=== PATIENT | female | born 1930 | race Caucasian/White ===

== ENCOUNTER → 2016-06-11 | Outpatient (CLI) | payer MEDICARE, BC | LOC: MW.CHIM 14:03 | PROVIDERS: ATTEND Internal Medicine | DX: G45.9 Transient cerebral ischemic attack, unspecified (principal) | CPT/HCPCS: 36415; 82550; 84520; 99204 ==

== ENCOUNTER → 2016-06-23 | Outpatient (CLI) | payer MEDICARE, BC ==
[~2016-06-23] MED LIST: Gadobutrol 10 mMOL/10 ML SDV IVPUSH STA
--- NOTE | 2016-06-24 14:29 | MR ---
EXAM DATE: 06/23/16 PATIENT'S AGE: 86 Patient: WENDY SOLIS Facility: [place], [place] Site . Site : 1930 Study: MRI Head [id number]/8/2017 3:48:45 PM Ordering Physician: Sissy Tovar Final Report: Indication: TIA. Comparison: 11/26/2014. Technique: Multiplanar T1, T2, FLAIR, susceptibility, diffusion weighted sequences. Findings: Mild generalized volume loss. Patchy and confluent T2/FLAIR signal hyperintensity within the white matter both cerebral hemispheres consistent with small vessel ischemic changes. No intracranial hemorrhage. No abnormal ventricular dilatation. Intracranial vascular flow voids are preserved. No mass or mass effect. No midline shift. No restricted diffusion to suggest acute ischemia. No susceptibility artifact to suggest hemosiderin of remote hemorrhage. Bilateral orbits are unremarkable. Normal appearing sella. Visualized paranasal sinuses and mastoid air cells are unremarkable. Impression: 1. No interval change 2. No acute intracranial abnormality. 3. Mild generalized volume loss. Chronic deep white matter small vessel ischemic changes. Dictated by Narciso Miller MD @ Jun 24 2016 9:03AM (Electronic Signature) Report Signed by Proxy and Original Signed Document filed in the Medical Record. [facility]
--- NOTE | 2016-06-24 14:30 | MR ---
EXAM DATE: 06/23/16 PATIENT'S AGE: 86 Patient: WENDY SOLIS Facility: [place], [place] Site . Site : 1930 Study: MRI Head Angio [id number]/8/2017 4:04:04 PM Ordering Physician: Sissy Tovar Final Report: Indication: TIA. Comparison: None. Technique: [id number] MRA. 3D reconstructed images. Findings: Bilateral carotid siphons are patent. Patent telida Grijalva with diminutive bilateral posterior communicating arteries. Visualized bilateral HOANG and MCA circulations are patent without focal stenosis or aneurysm. Bilateral STEWARD/STEWARDESS WINE circulations are patent without stenosis or aneurysm. Codominant vertebral basilar system. Impression: Normal MRA head. Dictated by Narciso Miller MD @ Jun 24 2016 9:07AM (Electronic Signature) Report Signed by Proxy and Original Signed Document filed in the Medical Record. [facility]
--- NOTE | 2016-06-24 14:31 | MR ---
EXAM DATE: 06/23/16 PATIENT'S AGE: 86 Patient: WENDY SOLIS Facility: [place], [place] Site . Site : 1930 Study: MRI Extremity Angio [id number]/8/2017 4:05:10 PM Ordering Physician: Sissy Tovar Final Report: Indication: TIA. Comparison: None. Technique: [id number] and gadolinium bolus MRA of the neck. 3D reconstructed images. Findings: No focal flow-void on [id number] MRA to suggest high-grade stenosis. Gadolinium bolus MRA demonstrates patent bilateral carotid artery circulations from the origin to the skullbase. No focal stenosis. Patent bilateral vertebral circulations from the origin to the vertebrobasilar junction. No stenosis or dissection. Impression: Normal MRA neck. Dictated by Narciso Miller MD @ Jun 24 2016 9:06AM (Electronic Signature) Report Signed by Proxy and Original Signed Document filed in the Medical Record. [facility]UNILDA
== END ==
LOC: MW.MRI 13:48
PROVIDERS: ATTEND Internal Medicine
DX: G45.9 Transient cerebral ischemic attack, unspecified (principal); I10 Essential (primary) hypertension; I67.82 Cerebral ischemia
CPT/HCPCS: 70546; 70549; 70551; A9585

== ENCOUNTER → 2016-06-28 | Outpatient (CLI) | payer MEDICARE, BC | END | disposition home or self-care (01) | LOC: MW.RT 10:46 | PROVIDERS: ATTEND Emergency Medicine | DX: I10 Essential (primary) hypertension (principal); G45.9 Transient cerebral ischemic attack, unspecified | CPT/HCPCS: 93270 ==

== ENCOUNTER → 2016-08-02 | Outpatient (CLI) | payer MEDICARE, BC | LOC: MW.CHNEURO 08:00 | PROVIDERS: ATTEND Psychiatry & Neurology Neuromuscular Medicine | DX: R27.0 Ataxia, unspecified (principal); R51 Headache; R29.898 Other symptoms and signs involving the musculoskeletal system | CPT/HCPCS: 99214 ==

== ENCOUNTER → 2016-08-13 | Outpatient (CLI) | payer MEDICARE, BC | LOC: MW.CHIM 08:00 | PROVIDERS: ATTEND Internal Medicine | DX: I48.91 Unspecified atrial fibrillation (principal); I10 Essential (primary) hypertension; E78.00 Pure hypercholesterolemia, unspecified; I49.3 Ventricular premature depolarization | CPT/HCPCS: G0463 ==

== ENCOUNTER 2016-12-14 11:32 | Observation (INO) | payer MEDICARE, BC ==
--- NOTE | 2016-12-14 11:41 | EDM.PDOC ---
ED HPI GENERAL MEDICAL PROBLEM - General Chief Complaint: Head Injury Stated Complaint: FALL Time Seen by Provider: 12/14/16 11:36 Source of Information: Reports: Patient History Limitations: Reports: No Limitations - History of Present Illness INITIAL COMMENTS - FREE TEXT/NARRATIVE: HISTORY AND PHYSICAL: History of present illness: 86-year-old female presents to the emergency room today with complaints of falls. Patient was brought in by EMS after having fallen 3 times this morning. EMS reported that she did complain of dizziness when ambulating to the cot, patient currently denies any symptoms. When the patient is asked why she felt that she fell she states she was unsure why and unsure if she lost consciousness. Reports that she had an episode of chest pain at 10:30 this morning and took 1 tablet of nitroglycerin which alleviated her pain. Proceeded to fall at 1045 this morning. EMS did apply a clean dressing to her left hand she had a hematoma. Some bruising noted to the right hand, assisted patient in removing some of her jewelry due to swelling. Patient has a history of atrial fibrillation which she takes aspirin and Xeralto. Review of systems: As per history of present illness and below otherwise all systems reviewed and negative. Past medical history: As per history of present illness and as reviewed below otherwise noncontributory. Surgical history: As per history of present illness and as reviewed below otherwise noncontributory. Social history: No reported history of drug or alcohol abuse. Family history: As per history of present illness and as reviewed below otherwise noncontributory. Physical exam: Gen.: Nontoxic appearing 86-year-old female. Alert and oriented. Able to answers questions appropriately without shortness of breath. HEENT: Atraumatic, normocephalic, pupils reactive, negative for conjunctival pallor or scleral icterus, mucous membranes moist, throat clear, neck supple, nontender, trachea midline. Lungs: Clear to auscultation, breath sounds equal bilaterally, chest nontender. Heart: S1S2, irregular, negative for clicks, rubs, or JVD. Abdomen: Soft, nondistended, nontender. Negative for masses or hepatosplenomegaly. Negative for costovertebral tenderness. Pelvis: Stable nontender. Genitourinary: Deferred. Rectal: Deferred. Extremities: Atraumatic, negative for cords or calf pain. Neurovascular unremarkable. Hematoma noted to left hand along the ulnar side. Bruising noted to proximal 2nd and 3rd knuckle. Moves all extremities per self. Neuro: Awake, alert, oriented. Cranial nerves II through XII unremarkable. Cerebellum unremarkable. Motor and sensory unremarkable throughout. Exam nonfocal. 1310- Discussed case with Dr. Fountain. Patient is agreeable for admission. Patient will be on telemetry Diagnostics: CBC, CMP, troponin, PT/INR, EKG, one view chest x-ray, right hand x-ray Therapeutics: compliance monitor, orthostatic vital Impression: #1 syncope with fall Definitive disposition and diagnosis as appropriate pending reevaluation and review of above. Left Neck Pain Score (Numeric/FACES): 5 - Related Data Allergies Allergy/AdvReac Type Severity Reaction Status Date / Time alprazolam [From Xanax] Allergy Hives Verified 12/14/16 11:53 atorvastatin calcium Allergy Itching Verified 12/14/16 11:53 [From Lipitor] butalbital Allergy Hives Verified 12/14/16 11:53 [From Fiorinal-Codeine #3] caffeine Allergy Hives Verified 12/14/16 11:53 [From Fiorinal-Codeine #3] carbamazepine [From Tegretol] Allergy Hives Verified 12/14/16 11:53 codeine phosphate Allergy Hives Verified 12/14/16 11:53 [From Fiorinal-Codeine #3] diclofenac sodium Allergy Itching Verified 12/14/16 11:53 [From Voltaren] fenofibrate nanocrystallized Allergy Hives Verified 12/14/16 11:53 [From Tricor] fenofibrate,micronized Allergy Hives Verified 12/14/16 11:53 [From Tricor] ramipril [From Altace] Allergy Hives Verified 12/14/16 11:53 Home Meds: Home Meds Citalopram [Citalopram HBr] 20 mg PO DAILY 08/09/13 [History] Gabapentin [Neurontin] 100 mg PO BID 08/09/13 [History] Lutein/Minerals/Vit A,C & E [Ocuvite] 1 tab PO DAILY 08/09/13 [History] Simvastatin [Zocor] 20 mg PO BEDTIME 08/09/13 [History] Vitamin E (Dl,Tocopheryl Acet) [Vitamin E] 400 units PO DAILY 08/09/13 [History] Metoprolol Succinate 25 mg PO BEDTIME 08/10/13 [History] Diclofenac Epolamine [Flector 1.3%] 1 patch TRDERM ASDIRECTED 04/01/14 [History] Cholecalciferol (Vitamin D3) [Vitamin D3] 1,000 unit PO DAILY 04/04/14 [History] Anastrozole [Arimidex] 1 tab PO DAILY 08/18/15 [History] Aspirin [Adult Low Dose Aspirin EC] 1 tab PO DAILY 08/18/15 [History] Fluticasone Propionate [Flonase Allergy Relief] 1 - 2 spray NASBOTH DAILY [History] LORazepam 1 tab PO BID 08/18/15 [History] Omeprazole [Prilosec] 1 cap PO DAILY 08/18/15 [History] Nitroglycerin [Nitrostat] 1 tab BUCCAL DAILY PRN 12/14/16 [History] Rivaroxaban [Xarelto] 1 tab PO DAILY 12/14/16 [History] Past Medical History HEENT History: Reports: Allergic Rhinitis, Impaired Vision, Other (See Below) Other HEENT History: wears glasses, has upper and lower dentures Cardiovascular History: Reports: Heart Murmur, High Cholesterol, Hypertension Respiratory History: Reports: None Gastrointestinal History: Reports: GERD, Hiatal Hernia Genitourinary History: Reports: None [employer] History: Reports: Musculoskeletal History: Reports: Arthritis, Back Pain, Chronic Other Musculoskeletal History: has spinal stenosis, arthritis in back and neck Neurological History: Reports: Headaches, Chronic Psychiatric History: Reports: Anxiety, Depression Endocrine/Metabolic History: Reports: None Hematologic History: Reports: Blood Transfusion(s) Immunologic History: Reports: None Oncologic (Cancer) History: Reports: Breast Dermatologic History: Reports: None - Past Surgical History HEENT Surgical History: Reports: Cataract Surgery Cardiovascular Surgical History: Reports: Coronary Artery Stent Female Surgical History: Reports: Breast Biopsy, Hysterectomy, Mastectomy Musculoskeletal Surgical History: Reports: Shoulder Surgery, Other (See Below) Social & Family History - Tobacco Use Smoking Status *Q: Never Smoker - Alcohol Use Days Per Week of Alcohol Use: 0 Number of Drinks Per Day: 0 Total Drinks Per Week: 0 - Recreational Drug Use Recreational Drug Use: No Drug Use in Last 12 Months: No ED ROS GENERAL - Review of Systems Review Of Systems: See Below ED EXAM, HEAD INJURY - Physical Exam Exam: See Below (See dictation) EKG INTERPRETATION EKG Date: 12/14/16 Time: 11:43 Rhythm: A-Fib Rate (Beats/Min): 94 Course - Vital Signs Last Recorded V/S: Last Vital Signs Temp 36.1 C 12/14/16 11:34 Pulse 98 12/14/16 11:34 Resp 18 12/14/16 11:34 BP 134/75 12/14/16 11:34 Pulse Ox Orthostatic Blood Pressure [ 159/66 Standing] Orthostatic Blood Pressure [ 196/81 Sitting] Orthostatic Blood Pressure [ 193/81 Supine] - Orders/Labs/Meds Orders: Active Orders 24 hr Category Date Time Status Patient Status [ADT] Stat ADT 12/14/16 13:12 Ordered Cardiac Monitoring [RC] . DIRECTED Care 12/14/16 11:34 Active EKG Documentation Completion [RC] STAT Care 12/14/16 11:34 Active Orthostatic Vital Signs [RC] ASDIRECTED Care 12/14/16 11:34 Active Labs: Laboratory Tests 12/14/16 12/14/16 12/14/16 Range/Units 11:51 11:51 11:51 WBC 6.96 (4.0-11.0) K/uL RBC 4.04 L (4.30-5.90) M/uL Hgb 11.9 L (12.0-16.0) g/dL Hct 37.3 (36.0-46.0) % MCV 92.3 (80.0-98.0) fL MCH 29.5 (27.0-32.0) pg MCHC 31.9 (31.0-37.0) g/dL RDW Std Deviation 46.9 (28.0-62.0) fl RDW Coeff of Samia 14 (11.0-15.0) % Plt Count 184 (150-400) K/uL MPV 9.70 (7.40-12.00) fL Neut % (Auto) 64.6 (48.0-80.0) % Lymph % (Auto) 23.6 (16.0-40.0) % [place] % (Auto) 7.9 (0.0-15.0) % Eos % (Auto) 3.6 (0.0-7.0) % Baso % (Auto) 0.3 (0.0-1.5) % Neut # (Auto) 4.5 (1.4-5.7) K/uL Lymph # (Auto) 1.6 (0.6-2.4) K/uL [place] # (Auto) 0.6 (0.0-0.8) K/uL Eos # (Auto) 0.3 (0.0-0.7) K/uL Baso # (Auto) 0.0 (0.0-0.1) K/uL Nucleated RBC % 0.0 /100WBC Nucleated RBCs # 0 K/uL INR 1.04 (0.86-1.11) Sodium 140 (136-146) mmol/L Potassium 4.0 (3.5-5.1) mmol/L Chloride 106 (98-110) mmol/L Carbon Dioxide 26 (21-31) mmol/L BUN 16 (6.0-23.0) mg/dL Creatinine 1.0 (0.6-1.5) mg/dL Est Cr Clr Drug Dosing 31.94 mL/min Estimated GFR (MDRD) 52.6 ml/min Glucose 111 H (60-110) mg/dL Calcium 9.3 (8.8-10.8) mg/dL Total Bilirubin 0.4 (0.1-1.5) mg/dL AST 17 (5-40) IU/L ALT 10 (8-54) IU/L Alkaline Phosphatase 74 (40-150) Troponin I (0.0-0.29) NG/ML Total Protein 7.2 (6.0-8.0) g/dL Albumin 3.8 (3.4-4.8) g/dL Globulin 3.4 (2.0-3.5) g/dL Albumin/Globulin Ratio 1.1 L (1.3-2.8) 12/14/16 Range/Units 11:51 WBC (4.0-11.0) K/uL RBC (4.30-5.90) M/uL Hgb (12.0-16.0) g/dL Hct (36.0-46.0) % MCV (80.0-98.0) fL MCH (27.0-32.0) pg MCHC (31.0-37.0) g/dL RDW Std Deviation (28.0-62.0) fl RDW Coeff of Samia (11.0-15.0) % Plt Count (150-400) K/uL MPV (7.40-12.00) fL Neut % (Auto) (48.0-80.0) % Lymph % (Auto) (16.0-40.0) % [place] % (Auto) (0.0-15.0) % Eos % (Auto) (0.0-7.0) % Baso % (Auto) (0.0-1.5) % Neut # (Auto) (1.4-5.7) K/uL Lymph # (Auto) (0.6-2.4) K/uL [place] # (Auto) (0.0-0.8) K/uL Eos # (Auto) (0.0-0.7) K/uL Baso # (Auto) (0.0-0.1) K/uL Nucleated RBC % /100WBC Nucleated RBCs # K/uL INR (0.86-1.11) Sodium (136-146) mmol/L Potassium (3.5-5.1) mmol/L Chloride (98-110) mmol/L Carbon Dioxide (21-31) mmol/L BUN (6.0-23.0) mg/dL Creatinine (0.6-1.5) mg/dL Est Cr Clr Drug Dosing mL/min Estimated GFR (MDRD) ml/min Glucose (60-110) mg/dL Calcium (8.8-10.8) mg/dL Total Bilirubin (0.1-1.5) mg/dL AST (5-40) IU/L ALT (8-54) IU/L Alkaline Phosphatase (40-150) Troponin I < 0.10 (0.0-0.29) NG/ML Total Protein (6.0-8.0) g/dL Albumin (3.4-4.8) g/dL Globulin (2.0-3.5) g/dL Albumin/Globulin Ratio (1.3-2.8) Departure - Departure Time of Disposition: 13:16 Disposition: Refer to Observation Condition: Good Clinical Impression: Syncope Qualifiers: Encounter type: initial encounter - Discharge Information Referrals: Bubba Yost MD [Primary Care Provider] - Forms: ED Department Discharge - My Orders Last 24 Hours: My Active Orders 12/14/16 11:34 Cardiac Monitoring [RC] . DIRECTED EKG Documentation Completion [RC] STAT Orthostatic Vital Signs [RC] ASDIRECTED 12/14/16 13:12 Patient Status [ADT] Stat - Assessment/Plan Last 24 Hours: My Active Orders 12/14/16 11:34 Cardiac Monitoring [RC] . DIRECTED EKG Documentation Completion [RC] STAT Orthostatic Vital Signs [RC] ASDIRECTED 12/14/16 13:12 Patient Status [ADT] Stat
--- NOTE | 2016-12-14 12:32 | CR ---
EXAMINATION: Left hand HISTORY: Fall COMPARISON: None TECHNIQUE: 2 views FINDINGS: Moderate osteoarthritic changes noted within the left hand with joint space narrowing and o steophyte formation within the interphalangeal joints, most prominent involving the second and third PIP joints. Bone mineralization is mildly osteopenic. No definite fracture or acute osseous abnormali ty demonstrated. No focal soft tissue swelling. Chondrocalcinosis noted within the wrist. IMPRESSION: 1. No acute osseous abnormality demonstrated within the left hand. 2. Prominent osteoarthritic changes noted. 3. Osteopenia.
--- NOTE | 2016-12-14 12:33 | CR ---
EXAMINATION: Right hand HISTORY: Pain COMPARISON: None TECHNIQUE: 2 views FINDINGS: Mild to Moderate osteoarthritic changes noted within the right hand with joint space narrow ing and osteophyte formation noted within the interphalangeal joints. Bone mineralization and joint s paces are otherwise preserved. No focal soft tissue swelling. Radiocarpal alignment is preserved. The re is generalized osteopenia. IMPRESSION: 1. Mild to moderate osteoarthritic changes noted within the right hand. 2. Generalized osteopenia.
--- NOTE | 2016-12-14 12:40 | CR ---
EXAMINATION: Portable chest radiograph. HISTORY: Chest pain. Comparison: 05/29/2015. FINDINGS: The trachea is midline. The cardiomediastinal silhouette is within normal limits. No pulmonary infilt rates, effusions or pneumothorax. Mild chronic interstitial prominence with increased density within the right suprahilar region. Osseous structures appear unremarkable. IMPRESSION: 1. No acute cardiopulmonary process. 2. Interstitial prominence with small area of focal increased density within the right suprahilar reg ion.
--- NOTE | 2016-12-14 12:57 | CT ---
EXAMINATION: Non contrast CT head. Coronal and sagittal reformats. HISTORY: Chest pain FINDINGS: No evidence of intra or extra axial hemorrhage, mass, midline shift, hydrocephalus or edema. There i s mild generalized atrophy. Mild to moderate periventricular and subcortical white matter hypodensiti es noted. No hypoattenuation changes in the major vascular territories to suggest acute infarct. No abnormal intracranial calcifications are detected. No evidence of substantial vascular calcificat ions. Opacification of several ethmoid air cells. Remaining paranasal sinuses and mastoid air cells are ventura ar. Pituitary fossa appears unremarkable. Small area of tenderness thickening within the right supraorbit al region. Orbits and globes appear normal. Calvarium is intact. No evidence of skull fracture. IMPRESSION: 1. Mild generalized atrophy and moderate small vessel ischemic changes without acute intracranial fin dings.
[2016-12-14] MEDS ORDERED: Acetaminophen 325 MG Tab PO ONE (13:34)
--- NOTE | 2016-12-14 13:49 | PCM.HP ---
H&P History of Present Illness - General Admit Problem/Dx: Admission Diagnosis/Problem Admission Diagnosis/Problem Syncope - History of Present Illness Initial Comments - Free Text/Narative: 86 yo female with pmh of atrial fibrillation who presents following a fall. Patient reports fall three times. between each fall she would get up take a few steps then fall again. She denies loosing consciousness. She denies any lightheadedness, or palpitaion. She reports some epigastric pain for which she took a nitro. She denies any chest pain currently. When she feel she hit her head and bruised her left hand. CT head, x-ray of hands were unremarkable. Left Neck Pain Score (Numeric/FACES): 5 Headache Pain Score (Numeric/FACES): 6 - Related Data Allergies/Adverse Reactions: Allergies Allergy/AdvReac Type Severity Reaction Status Date / Time alprazolam [From Xanax] Allergy Hives Verified 12/14/16 11:53 atorvastatin calcium Allergy Itching Verified 12/14/16 11:53 [From Lipitor] butalbital Allergy Hives Verified 12/14/16 11:53 [From Fiorinal-Codeine #3] caffeine Allergy Hives Verified 12/14/16 11:53 [From Fiorinal-Codeine #3] carbamazepine [From Tegretol] Allergy Hives Verified 12/14/16 11:53 codeine phosphate Allergy Hives Verified 12/14/16 11:53 [From Fiorinal-Codeine #3] diclofenac sodium Allergy Itching Verified 12/14/16 11:53 [From Voltaren] fenofibrate nanocrystallized Allergy Hives Verified 12/14/16 11:53 [From Tricor] fenofibrate,micronized Allergy Hives Verified 12/14/16 11:53 [From Tricor] ramipril [From Altace] Allergy Hives Verified 12/14/16 11:53 Home Medications: Home Meds Citalopram [Citalopram HBr] 20 mg PO DAILY 08/09/13 [History] Simvastatin [Zocor] 20 mg PO BEDTIME 08/09/13 [History] Vitamin E (Dl,Tocopheryl Acet) [Vitamin E] 400 units PO DAILY 08/09/13 [History] LORazepam 1 mg PO BEDTIME 08/18/15 [History] Anastrozole [Arimidex] 1 mg PO DAILY 12/14/16 [History] Cholecalciferol (Vitamin D3) [Vitamin D3] 1,000 unit PO DAILY 12/14/16 [History] Cyanocobalamin (Vitamin B-12) [Vitamin B-12] 1,000 mcg PO DAILY 12/14/16 [ History] Nitroglycerin [Nitrostat] 1 tab BUCCAL DAILY PRN 12/14/16 [History] cycloSPORINE [Restasis] 1 drop EYEBOTH BID 12/14/16 [History] prednisoLONE Acetate [Prednisolone Acetate] 1 drop EYEBOTH DAILY 12/14/16 [ History] Aspirin [Low Dose Aspirin EC] 81 mg PO DAILY #30 tablet.dr 12/15/16 [Rx] Metoprolol Tartrate [Lopressor] 25 mg PO Q12HR #0 tablet 12/15/16 [Rx] Past Medical History HEENT History: Reports: Allergic Rhinitis, Impaired Vision, Other (See Below) Other HEENT History: wears glasses, has upper and lower dentures Cardiovascular History: Reports: Heart Murmur, High Cholesterol, Hypertension Respiratory History: Reports: None Gastrointestinal History: Reports: GERD, Hiatal Hernia Genitourinary History: Reports: None [employer] 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: Musculoskeletal History: Reports: Arthritis, Back Pain, Chronic Other Musculoskeletal History: has spinal stenosis, arthritis in back and neck Neurological History: Reports: Headaches, Chronic Psychiatric History: Reports: Anxiety, Depression Endocrine/Metabolic History: Reports: None Hematologic History: Reports: Blood Transfusion(s) Immunologic History: Reports: None Oncologic (Cancer) History: Reports: Breast Dermatologic History: Reports: None - Past Surgical History HEENT Surgical History: Reports: Cataract Surgery Cardiovascular Surgical History: Reports: Coronary Artery Stent Female Surgical History: Reports: Breast Biopsy, Hysterectomy, Mastectomy Musculoskeletal Surgical History: Reports: Shoulder Surgery, Other (See Below) Social & Family History - Family History Family Medical History: Noncontributory - Tobacco Use Smoking Status *Q: Never Smoker Second Hand Smoke Exposure: No - Caffeine Use Caffeine Use: Reports: Coffee - Alcohol Use Days Per Week of Alcohol Use: 0 Number of Drinks Per Day: 0 Total Drinks Per Week: 0 - Recreational Drug Use Recreational Drug Use: No Drug Use in Last 12 Months: No H&P Review of Systems - Review of Systems: Review Of Systems: ROS reveals no pertinent complaints other than HPI. Exam - Exam Exam: See Below - Vital Signs Vital Signs: Last Vital Signs Temp 36.1 C 12/14/16 11:34 Pulse 98 12/14/16 11:34 Resp 18 12/14/16 11:34 BP 134/75 12/14/16 11:34 Pulse Ox Weight: 50.802 kg - Exam General: Alert, Oriented HEENT: Mucosa Moist & [place], Other (bruising and mild swelling over right forehead) Lungs: Clear to Auscultation, Normal Respiratory Effort Cardiovascular: Regular Rate GI/Abdominal Exam: Normal Bowel Sounds, Soft, Non-Tender, No Organomegaly, No Distention Extremities: Normal Inspection, Non-Tender, No Pedal Edema Skin: Warm, Dry, Intact Neurological: No: Focal Deficit - Patient Data Result Diagrams: 12/14/16 11:51 12/14/16 11:51 *Q Meaningful Use (ADM) - VTE *Q VTE Criteria *Q: - Stroke *Q Stroke Criteria *Q: - AMI *Q AMI Criteria *Q: Problem List Initiated/Reviewed/Updated: Yes Assessment/Plan Comment:: 86 yo female who presents following a fall. She was monitored overnight on telemetry. She was noted to have an episode of atrial fibrillation with heart rate in the 120s-140s. She was started on metoprolol 25mg and converted to normal sinus rhythm. Physical therapy was consulted and noted some gait instability and recommended a wheeled walker that would give her more stability than a cane. Dr. Stoner was consulted and recommended metoprolol 25 mg BID, 48 hour holter monitor and discontinuing her xarelto and starting aspirin 81mg daily due to the concerns of her frequent falls. She is to follow up with Dr. Stoner following the completion of holter monitor.
[2016-12-14] MEDS ORDERED: Diltiazem 25 MG/5 ML SDV IVPUSH ONE (15:12)
[2016-12-14] MEDS: Acetaminophen 325 MG Tab PO PRN ×2 (17:01→23:30)
[2016-12-14] MEDS: Metoprolol Tartrate 25 MG Tab PO SCH ×2 (18:56→21:00)
[2016-12-14] MEDS ORDERED: Simvastatin 20 MG Tab PO SCH (21:00)
[2016-12-14] MEDS ORDERED: Cyclosporine 1 DROP EYEBOTH SCH (21:00)
[2016-12-15] MEDS: Acetaminophen 325 MG Tab PO PRN ×2 (03:59→08:07)
[2016-12-15] MEDS: Metoprolol Tartrate 25 MG Tab PO SCH (08:07)
[2016-12-15] MEDS ORDERED: prednisoLONE Acetate 1% Ophth Susp 5 ML Bottle EYEBOTH SCH (09:00)
[2016-12-15] MEDS ORDERED: Citalopram 20 MG Tab PO SCH (09:00)
[2016-12-15] MEDS ORDERED: Anastrozole 1 MG Tab PO SCH (09:00)
[2016-12-15 16:29] VITALS: BP 139/63
[2016-12-15] MEDS ORDERED: Rivaroxaban 15 MG Tab PO SCH (17:30)
--- NOTE | 2016-12-16 11:15 | CONS ---
DATE OF CONSULTATION: 12/15/2016 DATE OF : 1930 PRIMARY CARE PHYSICIAN: None PCP REASON FOR CONSULTATION: Atrial fibrillation with RVR and multiple falls. HISTORY OF PRESENT ILLNESS: This is an 86-year-old female with history of CAD, status post PCI 10 years ago; history of breast cancer; hypertension; hyperlipidemia; history of PVCs and PACs. Recently had a heart cath. There is no significant blockage. She was sent to the hospital because of multiple falls 3 times in a row in the same day. When I talked to her, she was not exactly sure what happened, but she said she has fallen 3 times on the day of admission. The first time, when she was walking out from the house to go to the car, and all of the sudden, she fell. She did not trip. She did not hit her head. She did not lose consciousness. She did not remember if she has palpitation or chest pain prior to the fall, but she was pretty adamant about not losing consciousness. However, she only said "I just fell" and she was very sure that she did not have light-headedness or dizziness. She stated that, if she had those symptoms, she would not have gone out to go to the car and drive. Then, she got up by herself and then she walked into the garage and then she fell again twice. No prodrome symptoms. Not feeling weakness, tightness, or chest pain. She was so sure that she was not tripping or stumbling on anything, and then she was seen in the emergency room. When she was in the hospital, she was found to be in atrial fibrillation with RVR, which has been known before, and heart rate was 130 to 140. Recently, prior to the fall, she was seen by her primary care doctor with regard of her dizziness spell and also there was concern about the slow heart rate with multiple PVCs, and that was why metoprolol was discontinued. By asking her history, even though we stopped her metoprolol, she stated that she did not feel anything different, and she is still feeling about the same. Also, she was not sure either if she has lost consciousness when she was falling. Prior to that a month ago, she also fell. She did not remember the occurrence of the fall or how she got to the fall. She denies shortness of breath. She has occasional chest pain, but no prodrome of symptom of chest pain or palpitations prior to the falls. REVIEW OF SYSTEMS: Has been negative, except indicated in the HPI. PAST MEDICAL HISTORY: Hypertension; CAD status post ICA of the PCI; dyslipidemia; paroxysmal atrial fibrillation; and history of frequent PVCs. SOCIAL HISTORY: She denies smoking, drinking, or drug use. She lives alone. She takes care of herself. MEDICATIONS: Her cardiac medications include aspirin 81 mg once a day, simvastatin 20 mg once a day, and Xarelto 15 mg once a day. Metoprolol was stopped already. CARDIAC TESTING: In May 2016, echocardiogram showed 55% to 60% mild aortic sclerosis, mild MR, mild LAE. Ultrasound of the carotids in May 2015, the right ICA 50% to 69% and the left ICA less than 50%. Holter monitor 48-hour in May 2016, which shows sinus rhythm, heart rate 61 to 103, average heart rate is 70, PVCs 12.3%. No episode of atrial fibrillation. There are episodes of nonsustained VT with PACs. MRI without contrast in September 2015, unremarkable. A 30-day heart monitor showed one episode of atrial fibrillation, PAC and PVC noted. Cardiac catheterization in October 2016, showing LAD 30% blockage, however, no significant disease. PHYSICAL EXAMINATION: VITAL SIGNS: Initial blood pressure was 134/75, but her blood pressure was fluctuated up to 173/83 and coming down to 139/63. Her heart rate, initially she was found to be in atrial fibrillation with a heart rate of 130 to 140, currently in sinus rhythm with a heart rate of 71. Her O2 saturation was 94% on room air. Temperature 37.1. Respirations 18. HEENT: No pale. No jaundice. No JVD. HEART: Normal S1 and S2. No murmur. LUNGS: Clear bilaterally. ABDOMEN: Soft. Nontender. Bowel sounds present. No hepatosplenomegaly. LEGS: No edema. INVESTIGATIONS: EKG on telemetry on December 14, 2016, at 2pm, showed atrial fibrillation with a heart rate of 130 to 140. EKG 12-lead on December 14 at 11 a.m. shows sinus rhythm, heart rate of 94, QRS duration of 87, and QTc of 456. CBC showed WBC 6, hematocrit 37, hemoglobin 11, and platelet 184. INR 1.04. Sodium 140, potassium 4, chloride 106, bicarb 26, BUN 16, creatinine 1.0, glucose 111. Troponin is negative x3. Liver function is normal. ASSESSMENT AND PLAN: This is an 86-year-old female, who has a history of paroxysmal atrial fibrillation, hypertension, hyperlipidemia, and coronary artery disease, status post percutaneous coronary intervention, who came into the hospital with multiple falls, questioning syncope. The patient was a poor historian. She did not remember exactly what happened. She only said falls, but when she got into the hospital, she was found to be in atrial fibrillation with a heart rate of 130 to 140 and converted by itself and then beta-michael was put back on, 25 mg once a day. Regarding her CHADs-VASc, she would need a long-term anticoagulation for atrial fibrillation; however, with the multiple falls, I would hold off on the Xarelto, and I put her back on an aspirin 81 mg once a day. I am not entirely sure that her fall related to arrhythmia or syncope, but definitely is not acute coronary syndrome. I would recommend to do a heart monitor for 48 hours to see any significant atrioventricular block and also to detect the PVC burden, as well as I will refer her to see Electrophysiology for implantable loop recorder for long-term heart rhythm monitoring. Her ischemia work ups seemed to be unremarkable with unremarkable coronary angiogram. I would recommend to do long-period cardiac monitoring: implantable loop recorder. This would help us determine her chronic dizziness as well as frequent fall to determine whether of not it is related to cardiac arrhythmia. She should be able to be discharged home. I will order 48 holter monitor anmd refer her top have implantable loop recorder which will be done in [facility]. JORGE / SUN /[id number] ZUNILDA
--- NOTE | 2016-12-21 19:24 | ECHO ---
The echocardiogram report can be seen in this patient's EMR (electronic medical records) in the Reports section. The report has also been scanned into PACS and can be seen there. ZUNILDA
== END 2016-12-15 17:55 | disposition home or self-care (01) ==
LOC: MW.ED 11:32 → MW.MS 13:12 → UNDOADMOB 13:12 → MW.MS 13:44
PROVIDERS: ADMIT Internal Medicine; ATTEND Internal Medicine
DX: I48.0 Paroxysmal atrial fibrillation (principal); R26.9 Unspecified abnormalities of gait and mobility; R10.13 Epigastric pain; E78.00 Pure hypercholesterolemia, unspecified; I10 Essential (primary) hypertension; I25.10 Atherosclerotic heart disease of native coronary artery without angina pectoris; M19.90 Unspecified osteoarthritis, unspecified site; F41.9 Anxiety disorder, unspecified; F32.9 Major depressive disorder, single episode, unspecified; Z85.3 Personal history of malignant neoplasm of breast; Z88.5 Allergy status to narcotic agent; Z88.6 Allergy status to analgesic agent; Z88.8 Allergy status to other drugs, medicaments and biological substances; Z79.811 Long term (current) use of aromatase inhibitors; Z79.82 Long term (current) use of aspirin; Z79.899 Other long term (current) drug therapy; Z95.5 Presence of coronary angioplasty implant and graft; Z90.10 Acquired absence of unspecified breast and nipple; Z90.710 Acquired absence of both cervix and uterus; Z98.890 Other specified postprocedural states
CPT/HCPCS: 36415; 70450; 71010; 73120; 80053; 84484; 85025; 85610; 93005; 93306; 96374; 97161; 99285; A9270; G0378; J3490; 99283

== ENCOUNTER 2017-02-01 12:59 | Emergency (ER) | payer MEDICARE, BC | END 2017-02-01 13:06 | disposition left against medical advice (07) | LOC: MW.ED 12:59 | DX: Z53.21 Procedure and treatment not carried out due to patient leaving prior to being seen by health care provider (principal) ==

== ENCOUNTER 2017-02-01 15:12 | Emergency (ER) | payer MEDICARE, BC ==
[2017-02-01] MEDS ORDERED: Lidocaine 1% with EPINEPHrine 1:100,000 20 ML MDV ONE (15:21)
[2017-02-01] MEDS ORDERED: Lidocaine 1% with EPINEPHrine 1:100,000 20 ML MDV INJECT ONE (16:10)
[2017-02-01 16:19] VITALS: BP 150/92
--- NOTE | 2017-02-01 21:09 | CONS ---
DATE OF CONSULTATION: 02/01/2017 DATE OF : 1930 PRIMARY CARE PHYSICIAN: None PCP Consult from emergency room, Dr. Reddy. CONCERNING QUESTION: Foreign body in the chest. Consult was called, the patient was seen shortly after. 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 HISTORY OF PRESENT ILLNESS: The patient is an 86-year-old lady, had tumbler machine operator implant subcutaneously for one month and for the last two days, it was exposed, cold through the skin. The patient denies fever, chills, diarrhea, pain, or drainage. PAST MEDICAL HISTORY: No diabetes, CO, CVA, hypertension. PAST SURGICAL HISTORY: impregnator operator implant and left breast cancer status post modified radical mastectomy, normal vaginal delivery x3. ALLERGIES: Please refer nursing for details. MEDICATION: Please refer nursing for details. REVIEW OF SYSTEMS: Same as history of present illness. FAMILY HISTORY: Noncontributory. PHYSICAL EXAMINATION: GENERAL: A very pleasant lady in no acute distress. HEENT: Normocephalic, atraumatic. Sclerae anicteric. LUNGS: Clear to auscultation. HEART: Regular rate and rhythm. ABDOMEN: Soft, nondistended. No pulsating tender midline abdominal structure. On the mastectomy site on the left chest, there was exposed foreign body. SKIN: Not erythematous and no cellulitis, nontender, no expressed material. IMPRESSION: Foreign body on the chest, would benefit from a tiny removal with absolutely no signs or symptoms of infection. The patient agreed to have it removed on the bedside. ADDENDUM: Foreign body removed intact and the patient given pain medication script and antibiotic and followup appointment. ULI / SUN /[id number]
--- NOTE | 2017-02-02 09:35 | OR ---
SURGEON: Ab Rosado MD DATE OF PROCEDURE: 02/01/2017 PROCEDURE PERFORMED: Foreign body extraction from the left chest. COMPLICATIONS: None. FINDINGS: Foreign body removed intact. PROCEDURE IN DETAIL: Procedure was performed in the Emergency [facility] [place], and a time-out was being called. The patient was identified, procedure was identified, and consent was obtained. The procedure was then started. The left chest area was prepped and draped in a sterile fashion. Lidocaine 1% was infiltrated. Using an 11- blade, a longitudinal incision along the length of the recorder was made, and the recorder was then squeezed out. WOUND CLOSURE: Following extensive irrigation, the wound was closed with 3-0 Ethilon and Tegaderm. CONDITION: The patient tolerated the procedure well. There were no intraoperative complications. ATTESTATION: Dr. Rosado was present throughout procedure. POSTOPERATIVE FOLLOWUP: The patient will follow up in my office. As always, thank you for the kind referral. ULI / SUN /[id number]
== END 2017-02-01 16:05 | disposition home or self-care (01) ==
LOC: MW.ED 15:12
DX: Z53.21 Procedure and treatment not carried out due to patient leaving prior to being seen by health care provider (principal)
CPT/HCPCS: 99283

== ENCOUNTER 2017-04-26 10:18 | Emergency (ER) | payer MEDICARE, BC ==
--- NOTE | 2017-04-26 10:48 | EDM.PDOC ---
ED HPI GENERAL MEDICAL PROBLEM - General Chief Complaint: Upper Extremity Injury/Pain Stated Complaint: SWOLLEN WRISTS Time Seen by Provider: 04/26/17 10:24 Source of Information: Reports: Patient History Limitations: Reports: No Limitations - History of Present Illness INITIAL COMMENTS - FREE TEXT/NARRATIVE: Presents reporting that yesterday afternoon she was walking across the street when she stepped on a patch of ice, fell forward and broke her fall with her outstretched arms. She did not think she was injured but last night had quite a bit of pain and this morning has swelling in her wrist bilateral. She lives alone at a senior care complex but is independent and drives her car. Bilateral Wrist/Hands Pain Score (Numeric/FACES): 9 - Related Data Allergies Allergy/AdvReac Type Severity Reaction Status Date / Time alprazolam [From Xanax] Allergy Hives Verified 02/01/17 15:33 atorvastatin calcium Allergy Itching Verified 02/01/17 15:33 [From Lipitor] butalbital Allergy Hives Verified 02/01/17 15:33 [From Fiorinal-Codeine #3] caffeine Allergy Hives Verified 02/01/17 15:33 [From Fiorinal-Codeine #3] carbamazepine [From Tegretol] Allergy Hives Verified 02/01/17 15:33 codeine phosphate Allergy Hives Verified 02/01/17 15:33 [From Fiorinal-Codeine #3] diclofenac sodium Allergy Itching Verified 02/01/17 15:33 [From Voltaren] fenofibrate nanocrystallized Allergy Hives Verified 02/01/17 15:33 [From Tricor] fenofibrate,micronized Allergy Hives Verified 02/01/17 15:33 [From Tricor] ramipril [From Altace] Allergy Hives Verified 02/01/17 15:33 Home Meds: Home Meds Citalopram [Citalopram HBr] 20 mg PO DAILY 08/09/13 [History] Simvastatin [Zocor] 20 mg PO BEDTIME 08/09/13 [History] Vitamin E (Dl,Tocopheryl Acet) [Vitamin E] 400 units PO DAILY 08/09/13 [History] LORazepam 1 mg PO BEDTIME 08/18/15 [History] Anastrozole [Arimidex] 1 mg PO DAILY 12/14/16 [History] Cholecalciferol (Vitamin D3) [Vitamin D3] 1,000 unit PO DAILY 12/14/16 [History] Cyanocobalamin (Vitamin B-12) [Vitamin B-12] 1,000 mcg PO DAILY 12/14/16 [ History] Nitroglycerin [Nitrostat] 1 tab BUCCAL DAILY PRN 12/14/16 [History] cycloSPORINE [Restasis] 1 drop EYEBOTH BID 12/14/16 [History] prednisoLONE Acetate [Prednisolone Acetate] 1 drop EYEBOTH DAILY 12/14/16 [ History] Aspirin [Low Dose Aspirin EC] 81 mg PO DAILY #30 tablet. 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: Musculoskeletal History: Reports: Arthritis, Back Pain, Chronic Other Musculoskeletal History: has spinal stenosis, arthritis in back and neck Neurological History: Reports: Headaches, Chronic Psychiatric History: Reports: Anxiety, Depression Endocrine/Metabolic History: Reports: None Hematologic History: Reports: Blood Transfusion(s) Immunologic History: Reports: None Oncologic (Cancer) History: Reports: Breast Dermatologic History: Reports: None - Past Surgical History Head Surgeries/Procedures: Reports: None HEENT Surgical History: Reports: Cataract Surgery Cardiovascular Surgical History: Reports: Coronary Artery Stent Female Surgical History: Reports: Breast Biopsy, Hysterectomy, Mastectomy Musculoskeletal Surgical History: Reports: Shoulder Surgery, Other (See Below) Social & Family History - Family History Family Medical History: Noncontributory - Tobacco Use Smoking Status *Q: Never Smoker Second Hand Smoke Exposure: No - Caffeine Use Caffeine Use: Reports: Coffee - Alcohol Use Days Per Week of Alcohol Use: 0 Number of Drinks Per Day: 0 Total Drinks Per Week: 0 - Recreational Drug Use Recreational Drug Use: No Drug Use in Last 12 Months: No Review of Systems - Review of Systems Review Of Systems: ROS reveals no pertinent complaints other than HPI. ED EXAM, GENERAL - Physical Exam Exam: See Below Exam Limited By: No Limitations General Appearance: Alert, No Apparent Distress Ears: Normal External Exam Nose: Normal Inspection Throat/Mouth: Normal Inspection Head: Atraumatic, Normocephalic Neck: Normal Inspection Respiratory/Chest: No Respiratory Distress, Lungs Clear Cardiovascular: Normal Peripheral Pulses, Regular Rate, Rhythm Extremities: Other (Full ROM of wrist, digits, elbows bilateral without limitation or hesitation. Mild swelling, ecchymosis bilateral. Deformity (pre- existing due to arthritis per patient) CMS intact distally) Neurological: Alert, Oriented Psychiatric: Normal Affect, Normal Mood Skin Exam: Warm, Dry, Intact, Normal Color, No Rash Course - Vital Signs Last Recorded V/S: Last Vital Signs Temp 36.2 C 04/26/17 10:30 Pulse 72 04/26/17 10:30 Resp 18 04/26/17 10:30 BP 144/106 H 04/26/17 10:30 Pulse Ox 96 04/26/17 10:30 - Orders/Labs/Meds Orders: Active Orders 24 hr Category Date Time Status Wrist 2V Lt [CR] Stat Exams 04/26/17 10:42 Ordered Wrist 2V Rt [CR] Stat Exams 04/26/17 10:42 Ordered Departure - Departure Time of Disposition: 11:30 Disposition: Home, Self-Care 01 Condition: Good Clinical Impression: Radial styloid fracture Qualifiers: Encounter type: initial encounter Fracture type: closed Fracture alignment: nondisplaced Laterality: unspecified laterality Qualified Code(s): S52.516A - Nondisplaced fracture of unspecified radial styloid process, initial encounter for closed fracture - Discharge Information Referrals: Bubba Yost MD [Primary Care Provider] - Additional Instructions: 1. You may have cracks in the larger bone of the forearm in the wrist. These cracks may be old or new but are minimal and not displaced. 2. Wear your wraps for compression and comfort. Avoid disabling and favoring to much which will put you at risk for falls. 3. Ice and elevate for the next 24 hours to prevent more swelling. Wiggle your fingers often. 4. You may continue usual low-level activity and self-care. 5. Follow up with your primary provider as needed. - My Orders Last 24 Hours: My Active Orders 04/26/17 10:42 Wrist 2V Lt [CR] Stat Wrist 2V Rt [CR] Stat - Assessment/Plan Last 24 Hours: My Active Orders 04/26/17 10:42 Wrist 2V Lt [CR] Stat Wrist 2V Rt [CR] Stat
--- NOTE | 2017-04-26 11:19 | CR ---
EXAMINATION: Left and right wrist radiographs HISTORY: Pain COMPARISON: None TECHNIQUE: 2 views bilaterally FINDINGS: There is a break within the distal radius at the articular surface bilaterally which may coles ggest bilateral radial styloid fractures. However the outer cortex of the radius appears intact. Old healed fracture deformities are also a possibility. Otherwise the osseous structures appear intact. B one mineralization is osteopenic. Mild chondrocalcinosis. Radiocarpal alignment is preserved krish engle. IMPRESSION: 1. Possible radial styloid fractures bilaterally. Correlate with previous injury in these locations.
[2017-04-26 11:55] VITALS: BP 146/105
== END 2017-04-26 11:56 | disposition home or self-care (01) ==
LOC: MW.ED 10:18
DX: S52.514A Nondisplaced fracture of right radial styloid process, initial encounter for closed fracture (principal); S52.515A Nondisplaced fracture of left radial styloid process, initial encounter for closed fracture; E78.00 Pure hypercholesterolemia, unspecified; I10 Essential (primary) hypertension; Z88.8 Allergy status to other drugs, medicaments and biological substances; Z79.899 Other long term (current) drug therapy; Z79.82 Long term (current) use of aspirin; W00.0XXA Fall on same level due to ice and snow, initial encounter
CPT/HCPCS: 73100-26-LT; 73100-26-RT; 73100-LT; 73100-RT; 99282; 99283

== ENCOUNTER 2018-10-03 09:27 | Emergency (ER) | payer MEDICARE, BC ==
[2018-10-03] MEDS ORDERED: Sodium Chloride 0.9% 1,000 ML IV ONE (09:52)
[2018-10-03 10:53] LABS: CHLORIDE,CL 99 mmol/L (98-107); SODIUM,NA 131 mmol/L (136-145)
--- NOTE | 2018-10-03 11:21 | CR ---
EXAMINATION: Pelvis and right hip HISTORY: Pain COMPARISON: CT from the same day TECHNIQUE: AP pelvis and 2 views of the right hip FINDINGS: There is no acute osseous abnormality, dislocation, or fracture. Bone mineralization and joint spaces are preserved. Early osteophyte formation noted within the hips bilaterally. Bone mineralization is normal. The iliopectineal and ilioischial inguinal lines are intact. IMPRESSION: No acute osseous abnormality identified.
--- NOTE | 2018-10-03 11:39 | CT ---
CT of the abdomen and pelvis without contrast. HISTORY: Pain TECHNIQUE: Axial CT images were obtained of the abdomen and pelvis without contrast. Coronal and sagittal reconstructions obtained. FINDINGS: The lung bases are clear, no pleural effusion. There is scarring noted within the lung bases. Tiny hiatal hernia. The liver, spleen, adrenal glands, and pancreas appear unremarkable for noncontrast examination. Cholecystectomy with mild prominence of the common bile duct.. There is no bulky retroperitoneal lymphadenopathy. No abdominal ascites. There are no calcifications noted within the kidneys or along the courses of the ureters bilaterally. The large and small bowel are normal in caliber without evidence of obstruction. The appendix appears normal. Moderate diverticulosis without definite evidence of diverticulitis. There is no bulky pelvic lymphadenopathy. No free fluid. No free air. The urinary bladder appears normal. The visualized osseous structures appear normal. IMPRESSION: 1. No acute findings within the abdomen or pelvis. 2. Diverticulosis without evidence of diverticulitis.
--- NOTE | 2018-10-03 12:17 | EDM.PDOC ---
ED HPI GENERAL MEDICAL PROBLEM - General Chief Complaint: General Stated Complaint: BACK/RT HIP PAIN/STOMACH PAIN Time Seen by Provider: 10/03/18 10:14 Source of Information: Reports: Patient History Limitations: Reports: No Limitations - History of Present Illness INITIAL COMMENTS - FREE TEXT/NARRATIVE: Presents reporting 4 weeks of off-and-on abdominal pain and bloating. She states she had H pylori but was treated. She had a brown formed BM yesterday. No nausea or vomiting. She also reports some right hip pain. She has had no injury and has been going about her daily activity. She is seen her primary provider Dr. Yost on . Right Hip/Back Pain Score (Numeric/FACES): 6 - Related Data Allergies Allergy/AdvReac Type Severity Reaction Status Date / Time alprazolam [From Xanax] Allergy Hives Verified 10/03/18 09:47 atorvastatin calcium Allergy Itching Verified 10/03/18 09:47 [From Lipitor] butalbital Allergy Hives Verified 10/03/18 09:47 [From Fiorinal-Codeine #3] caffeine Allergy Hives Verified 10/03/18 09:47 [From Fiorinal-Codeine #3] carbamazepine [From Tegretol] Allergy Hives Verified 10/03/18 09:47 codeine phosphate Allergy Hives Verified 10/03/18 09:47 [From Fiorinal-Codeine #3] diclofenac sodium Allergy Itching Verified 10/03/18 09:47 [From Voltaren] fenofibrate nanocrystallized Allergy Hives Verified 10/03/18 09:47 [From Tricor] fenofibrate,micronized Allergy Hives Verified 10/03/18 09:47 [From Tricor] ramipril [From Altace] Allergy Hives Verified 10/03/18 09:47 Home Meds: Home Meds Citalopram [Citalopram HBr] 20 mg PO DAILY 08/09/13 [History] Simvastatin [Zocor] 20 mg PO BEDTIME 08/09/13 [History] Vitamin E (Dl,Tocopheryl Acet) [Vitamin E] 400 units PO DAILY 08/09/13 [History] LORazepam 1 mg PO BEDTIME 08/18/15 [History] Anastrozole [Arimidex] 1 mg PO DAILY 12/14/16 [History] Cholecalciferol (Vitamin D3) [Vitamin D3] 1,000 unit PO DAILY 12/14/16 [History] Cyanocobalamin (Vitamin B-12) [Vitamin B-12] 1,000 mcg PO DAILY 12/14/16 [ History] Nitroglycerin [Nitrostat] 1 tab BUCCAL DAILY PRN 12/14/16 [History] cycloSPORINE [Restasis] 1 drop EYEBOTH BID 12/14/16 [History] prednisoLONE Acetate [Prednisolone Acetate] 1 drop EYEBOTH DAILY 12/14/16 [ History] Aspirin [Low Dose Aspirin EC] 81 mg PO DAILY #30 tablet. 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: Musculoskeletal History: Reports: Arthritis, Back Pain, Chronic Other Musculoskeletal History: has spinal stenosis, arthritis in back and neck Neurological History: Reports: Headaches, Chronic Psychiatric History: Reports: Anxiety, Depression Endocrine/Metabolic History: Reports: None Hematologic History: Reports: Blood Transfusion(s) Immunologic History: Reports: None Oncologic (Cancer) History: Reports: Breast Dermatologic History: Reports: None - Infectious Disease History Infectious Disease History: Reports: None - Past Surgical History Head Surgeries/Procedures: Reports: None HEENT Surgical History: Reports: Cataract Surgery Cardiovascular Surgical History: Reports: Coronary Artery Stent Female Surgical History: Reports: Breast Biopsy, Hysterectomy, Mastectomy Musculoskeletal Surgical History: Reports: Shoulder Surgery, Other (See Below) Social & Family History - Family History Family Medical History: Noncontributory - Tobacco Use Smoking Status *Q: Never Smoker - Caffeine Use Caffeine Use: Reports: Coffee - Recreational Drug Use Recreational Drug Use: No ED ROS GENERAL - Review of Systems Review Of Systems: ROS reveals no pertinent complaints other than HPI. ED EXAM, GENERAL - Physical Exam Exam: See Below Exam Limited By: No Limitations General Appearance: Alert, No Apparent Distress Ears: Normal External Exam, Normal TMs Nose: Normal Inspection Throat/Mouth: Normal Inspection, Normal Oropharynx Head: Atraumatic, Normocephalic Neck: Normal Inspection Respiratory/Chest: No Respiratory Distress, Lungs Clear, Normal Breath Sounds Cardiovascular: Normal Peripheral Pulses, Regular Rate, Rhythm, Other (Murmur, long-standing) GI/Abdominal: Normal Bowel Sounds, Soft, Non-Tender, No Distention (Female) Exam: Normal External Exam Rectal (Female) Exam: Normal Exam Back Exam: Normal Inspection, Full Range of Motion Extremities: Normal Inspection Neurological: Alert, Oriented Psychiatric: Normal Affect, Normal Mood Skin Exam: Warm, Dry, Intact, Normal Color, No Rash Lymphatic: No Adenopathy Course - Vital Signs Last Recorded V/S: Last Vital Signs Temp 36.1 C 10/03/18 09:47 Pulse 65 10/03/18 11:20 Resp 14 10/03/18 11:20 BP 165/84 H 10/03/18 11:20 Pulse Ox 95 10/03/18 11:20 - Orders/Labs/Meds Orders: Active Orders 24 hr Category Date Time Status EKG Documentation Completion [RC] STAT Care 10/03/18 09:53 Active Labs: Laboratory Tests 10/03/18 10/03/18 10/03/18 Range/Units 10:20 10:20 11:14 WBC 5.00 (4.0-11.0) K/uL RBC 3.85 L (4.30-5.90) M/uL Hgb 11.4 L (12.0-16.0) g/dL Hct 35.2 L (36.0-46.0) % MCV 91.4 (80.0-98.0) fL MCH 29.6 (27.0-32.0) pg MCHC 32.4 (31.0-37.0) g/dL RDW Std Deviation 48.0 (28.0-62.0) fl RDW Coeff of Samia 14 (11.0-15.0) % Plt Count 172 (150-400) K/uL MPV 9.60 (7.40-12.00) fL Neut % (Auto) 60.0 (48.0-80.0) % Lymph % (Auto) 25.6 (16.0-40.0) % [place] % (Auto) 8.4 (0.0-15.0) % Eos % (Auto) 5.8 (0.0-7.0) % Baso % (Auto) 0.2 (0.0-1.5) % Neut # (Auto) 3.0 (1.4-5.7) K/uL Lymph # (Auto) 1.3 (0.6-2.4) K/uL [place] # (Auto) 0.4 (0.0-0.8) K/uL Eos # (Auto) 0.3 (0.0-0.7) K/uL Baso # (Auto) 0.0 (0.0-0.1) K/uL Nucleated RBC % 0.0 /100WBC Nucleated RBCs # 0 K/uL Sodium 131 L (136-145) mmol/L Potassium 4.3 (3.5-5.1) mmol/L Chloride 99 (98-107) mmol/L Carbon Dioxide 26.7 (21.0-32.0) mmol/L BUN 15 (7.0-18.0) mg/dL Creatinine 0.9 (0.6-1.0) mg/dL Est Cr Clr Drug Dosing 34.17 mL/min Estimated GFR (MDRD) 59.1 ml/min Glucose 93 (74-106) mg/dL Calcium 8.7 (8.5-10.1) mg/dL Total Bilirubin 0.4 (0.2-1.0) mg/dL AST 20 (15-37) IU/L ALT 17 (14-63) IU/L Alkaline Phosphatase 70 (46-116) U/L Troponin I < 0.050 (0.000-0.056) ng/mL Total Protein 7.6 (6.4-8.2) g/dL Albumin 3.4 (3.4-5.0) g/dL Globulin 4.2 H (2.6-4.0) g/dL Albumin/Globulin Ratio 0.8 L (0.9-1.6) Lipase 199 (73-393) U/L Urine Color YELLOW Urine Appearance CLEAR Urine pH 6.0 (5.0-8.0) Ur Specific [place] 1.025 (1.001-1.035) Urine Protein NEGATIVE (NEGATIVE) mg/dL Urine Glucose (UA) NEGATIVE (NEGATIVE) mg/dL Urine Ketones NEGATIVE (NEGATIVE) mg/dL Urine Occult Blood NEGATIVE (NEGATIVE) Urine Nitrite NEGATIVE (NEGATIVE) Urine Bilirubin NEGATIVE (NEGATIVE) Urine Urobilinogen 0.2 (<2.0) EU/dL Ur Leukocyte Esterase NEGATIVE (NEGATIVE) Meds: Medications Discontinued Medications Generic Name Dose Route Start Last Admin Trade Name Freq PRN Reason Stop Dose Admin Sodium Chloride 1,000 mls @ 999 mls/hr 10/03/18 09:52 10/03/18 10:24 Normal Saline IV 10/03/18 10:52 Not Given STAT ONE Departure - Departure Time of Disposition: 12:16 Disposition: Home, Self-Care 01 Clinical Impression: Bloating - Discharge Information Referrals: Bubba Yost MD [Primary Care Provider] - Additional Instructions: 1. Follow-up with Dr. Yost on as previously scheduled
[2018-10-03 12:36] VITALS: BP 151/91
== END 2018-10-03 12:30 | disposition home or self-care (01) ==
LOC: MW.ED 09:27
DX: R14.0 Abdominal distension (gaseous) (principal); E78.00 Pure hypercholesterolemia, unspecified; I10 Essential (primary) hypertension; K21.9 Gastro-esophageal reflux disease without esophagitis; Z79.82 Long term (current) use of aspirin; Z88.8 Allergy status to other drugs, medicaments and biological substances; Z88.5 Allergy status to narcotic agent; F41.9 Anxiety disorder, unspecified; F32.9 Major depressive disorder, single episode, unspecified; Z79.899 Other long term (current) drug therapy
CPT/HCPCS: 36415; 73502-26-RT; 73502-RT; 74176; 74176-26; 80053; 81003; 83690; 84484; 85025; 93005; 99282; 99284-25

== ENCOUNTER 2018-11-06 09:24 | Emergency (ER) | payer MEDICARE, BC ==
[2018-11-06] MEDS ORDERED: Sodium Chloride 0.9% 2.5 ML Syringe FLUSH PRN (09:33)
[2018-11-06] MEDS ORDERED: Sodium Chloride 0.9% 10 ML Syringe FLUSH PRN (09:33)
--- NOTE | 2018-11-06 09:47 | EDM.PDOC ---
ED HPI GENERAL MEDICAL PROBLEM - General Chief Complaint: Cardiovascular Problem Stated Complaint: HEART COMPLAINTS Time Seen by Provider: 11/06/18 09:43 - History of Present Illness INITIAL COMMENTS - FREE TEXT/NARRATIVE: 88 y/o female here from Dr. Yost's clinic after she was found to have a complete heart block with HR in the 40's. Patient states that about 4-5 days ago she was at [facility] and staff was getting her vitals when they noticed bradycardia. She called the clinic where she was advised to stop her metoprolol. She followed up with Dr. Yost where she was found to be in complete heart block with HR 40. She denies any chest pain. States she has been feeling weaker and feels lightheaded when standing up. No new dyspnea or swelling. Denies any radiation to neck or left arm. No nausea or vomiting. ER course- HR 40's. normotensive. 92% on RA. pending lab work. - Related Data Allergies Allergy/AdvReac Type Severity Reaction Status Date / Time alprazolam [From Xanax] Allergy Hives Verified 11/06/18 09:33 atorvastatin calcium Allergy Itching Verified 11/06/18 09:33 [From Lipitor] butalbital Allergy Hives Verified 11/06/18 09:33 [From Fiorinal-Codeine #3] caffeine Allergy Hives Verified 11/06/18 09:33 [From Fiorinal-Codeine #3] carbamazepine [From Tegretol] Allergy Hives Verified 11/06/18 09:33 codeine phosphate Allergy Hives Verified 11/06/18 09:33 [From Fiorinal-Codeine #3] diclofenac sodium Allergy Itching Verified 11/06/18 09:33 [From Voltaren] fenofibrate nanocrystallized Allergy Hives Verified 11/06/18 09:33 [From Tricor] fenofibrate,micronized Allergy Hives Verified 11/06/18 09:33 [From Tricor] ramipril [From Altace] Allergy Hives Verified 11/06/18 09:33 Home Meds: Home Meds Citalopram [Citalopram HBr] 20 mg PO DAILY 08/09/13 [History] Simvastatin [Zocor] 20 mg PO BEDTIME 08/09/13 [History] Vitamin E (Dl,Tocopheryl Acet) [Vitamin E] 400 units PO DAILY 08/09/13 [History] LORazepam 1 mg PO BEDTIME 08/18/15 [History] Anastrozole [Arimidex] 1 mg PO DAILY 12/14/16 [History] Cholecalciferol (Vitamin D3) [Vitamin D3] 1,000 unit PO DAILY 12/14/16 [History] Cyanocobalamin (Vitamin B-12) [Vitamin B-12] 1,000 mcg PO DAILY 12/14/16 [ History] Nitroglycerin [Nitrostat] 1 tab BUCCAL DAILY PRN 12/14/16 [History] cycloSPORINE [Restasis] 1 drop EYEBOTH BID 12/14/16 [History] prednisoLONE Acetate [Prednisolone Acetate] 1 drop EYEBOTH DAILY 12/14/16 [ History] Aspirin [Low Dose Aspirin EC] 81 mg PO DAILY #30 tablet. 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: Musculoskeletal History: Reports: Arthritis, Back Pain, Chronic Other Musculoskeletal History: has spinal stenosis, arthritis in back and neck Neurological History: Reports: Headaches, Chronic Psychiatric History: Reports: Anxiety, Depression Endocrine/Metabolic History: Reports: None Hematologic History: Reports: Blood Transfusion(s) Immunologic History: Reports: None Oncologic (Cancer) History: Reports: Breast Dermatologic History: Reports: None - Infectious Disease History Infectious Disease History: Reports: Chicken Pox, Mumps - Past Surgical History Head Surgeries/Procedures: Reports: None HEENT Surgical History: Reports: Cataract Surgery Cardiovascular Surgical History: Reports: Coronary Artery Stent Female Surgical History: Reports: Breast Biopsy, Hysterectomy, Mastectomy Musculoskeletal Surgical History: Reports: Shoulder Surgery, Other (See Below) Social & Family History - Family History Family Medical History: Noncontributory - Tobacco Use Smoking Status *Q: Never Smoker - Caffeine Use Caffeine Use: Reports: Coffee - Recreational Drug Use Recreational Drug Use: No ED ROS GENERAL - Review of Systems Review Of Systems: ROS reveals no pertinent complaints other than HPI. ED EXAM, GENERAL - Physical Exam Exam: See Below General Appearance: Alert, WD/WN, No Apparent Distress Respiratory/Chest: No Respiratory Distress, Lungs Clear, Normal Breath Sounds Cardiovascular: No JVD, JVD, Bradycardia, Systolic Murmur GI/Abdominal: Normal Bowel Sounds, Soft, Non-Tender Extremities: Normal Inspection, No Pedal Edema Course - Vital Signs Text/Narrative:: Ordered troponin, CBC, CMP, TSH, BNP. Repeat EKG. Spoke with Dr. Mccarty, Wash Box Operator about patient and he agreed for patient to be transferred to [facility] to Hospital floor. Spoke with Dr. Espinoza, Hospitalist who accepted the patient. Patient will be transported to [facility] via ground ambulance. will place transcutaneous pacing pads. Currently, normotensive, HR in 40's, 94 % RA. Last Recorded V/S: Last Vital Signs Temp 36.3 C 11/06/18 09:33 Pulse 43 L 11/06/18 09:54 Resp 13 11/06/18 09:54 BP 170/43 H 11/06/18 09:54 Pulse Ox 96 11/06/18 09:54 - Orders/Labs/Meds Orders: Active Orders 24 hr Category Date Time Status EKG Documentation Completion [RC] STAT Care 11/06/18 09:34 Active B-TYPE NATRIURETIC PEPTIDE,BNP [CHEM] Stat Lab 11/06/18 09:33 Received Sodium Chloride 0.9% [Saline Flush] Med 11/06/18 09:33 Active 10 ml FLUSH ASDIRECTED PRN Sodium Chloride 0.9% [Saline Flush] Med 11/06/18 09:33 Active 2.5 ml FLUSH ASDIRECTED PRN Saline Lock Insert [OM.PC] Stat Oth 11/06/18 09:33 Ordered Medication Orders Sodium Chloride (Saline Flush) 10 ml FLUSH ASDIRECTED PRN PRN Reason: Keep Vein Open Last Admin: 11/06/18 09:54 Dose: 10 ml Sodium Chloride (Saline Flush) 2.5 ml FLUSH ASDIRECTED PRN PRN Reason: Keep Vein Open Last Admin: 11/06/18 09:54 Dose: 2.5 ml Labs: Laboratory Tests 11/06/18 11/06/18 Range/Units 09:33 09:33 WBC 7.86 (4.0-11.0) K/uL RBC 3.77 L (4.30-5.90) M/uL Hgb 11.2 L (12.0-16.0) g/dL Hct 34.7 L (36.0-46.0) % MCV 92.0 (80.0-98.0) fL MCH 29.7 (27.0-32.0) pg MCHC 32.3 (31.0-37.0) g/dL RDW Std Deviation 50.8 (28.0-62.0) fl RDW Coeff of Samia 15 (11.0-15.0) % Plt Count 201 (150-400) K/uL MPV 9.80 (7.40-12.00) fL Neut % (Auto) 60.2 (48.0-80.0) % Lymph % (Auto) 26.0 (16.0-40.0) % [place] % (Auto) 9.9 (0.0-15.0) % Eos % (Auto) 3.6 (0.0-7.0) % Baso % (Auto) 0.3 (0.0-1.5) % Neut # (Auto) 4.7 (1.4-5.7) K/uL Lymph # (Auto) 2.0 (0.6-2.4) K/uL [place] # (Auto) 0.8 (0.0-0.8) K/uL Eos # (Auto) 0.3 (0.0-0.7) K/uL Baso # (Auto) 0.0 (0.0-0.1) K/uL Nucleated RBC % 0.0 /100WBC Nucleated RBCs # 0 K/uL Sodium 135 L (136-145) mmol/L Potassium 4.9 (3.5-5.1) mmol/L Chloride 100 (98-107) mmol/L Carbon Dioxide 23.7 (21.0-32.0) mmol/L BUN 11 (7.0-18.0) mg/dL Creatinine 1.1 H (0.6-1.0) mg/dL Est Cr Clr Drug Dosing 27.96 mL/min Estimated GFR (MDRD) 46.9 ml/min Glucose 111 H (74-106) mg/dL Calcium 9.5 (8.5-10.1) mg/dL Magnesium 2.3 (1.8-2.4) mg/dL Total Bilirubin 0.5 (0.2-1.0) mg/dL AST 23 (15-37) IU/L ALT 24 (14-63) IU/L Alkaline Phosphatase 78 (46-116) U/L Troponin I < 0.050 (0.000-0.056) ng/mL Total Protein 7.5 (6.4-8.2) g/dL Albumin 3.4 (3.4-5.0) g/dL Globulin 4.1 H (2.6-4.0) g/dL Albumin/Globulin Ratio 0.8 L (0.9-1.6) TSH 3rd Generation 4.56 H (0.36-3.74) uIU/mL Meds: Medications Generic Name Dose Route Start Last Admin Trade Name Freq PRN Reason Stop Dose Admin Sodium Chloride 10 ml 11/06/18 09:33 11/06/18 09:54 Saline Flush FLUSH 10 ml ASDIRECTED PRN Administration Keep Vein Open Sodium Chloride 2.5 ml 11/06/18 09:33 11/06/18 09:54 Saline Flush FLUSH 2.5 ml ASDIRECTED PRN Administration Keep Vein Open Departure - Departure Time of Disposition: 10:18 Disposition: DC/Tfer to Acute Hospital 02 Reason for Transfer *Q: Other (complete heart block needing pacemaker.) Clinical Impression: Complete heart block by electrocardiogram Referrals: PCP,Unknown [Primary Care Provider] - Forms: ED Department Discharge - My Orders Last 24 Hours: My Active Orders 11/06/18 09:33 B-TYPE NATRIURETIC PEPTIDE,BNP [CHEM] Stat Sodium Chloride 0.9% [Saline Flush] 10 ml FLUSH ASDIRECTED PRN Sodium Chloride 0.9% [Saline Flush] 2.5 ml FLUSH ASDIRECTED PRN Saline Lock Insert [OM.PC] Stat 11/06/18 09:34 EKG Documentation Completion [RC] STAT - Assessment/Plan Last 24 Hours: My Active Orders 11/06/18 09:33 B-TYPE NATRIURETIC PEPTIDE,BNP [CHEM] Stat Sodium Chloride 0.9% [Saline Flush] 10 ml FLUSH ASDIRECTED PRN Sodium Chloride 0.9% [Saline Flush] 2.5 ml FLUSH ASDIRECTED PRN Saline Lock Insert [OM.PC] Stat 11/06/18 09:34 EKG Documentation Completion [RC] STAT
[2018-11-06 10:07] LABS: CHLORIDE,CL 100 mmol/L (98-107); SODIUM,NA 135 mmol/L (136-145)
--- NOTE | 2018-11-06 10:13 | CR ---
EXAMINATION: Portable chest radiograph. HISTORY: Shortness of breath. Comparison: 10/05/2017 FINDINGS: The trachea is midline. The heart is borderline in size. The cardiomediastinal silhouette is within normal limits. Chronic interstitial prominence and hyperinflation. Trace bilateral pleural effusions. Osseous structures appear unremarkable. IMPRESSION: 1. Trace bilateral pleural effusions with mild bibasilar atelectasis/infiltrate..
[2018-11-06 10:50] VITALS: BP 170/58
== END 2018-11-06 11:16 ==
LOC: MW.ED 09:24
DX: I45.9 Conduction disorder, unspecified (principal); I10 Essential (primary) hypertension; E78.00 Pure hypercholesterolemia, unspecified; K21.9 Gastro-esophageal reflux disease without esophagitis; F41.9 Anxiety disorder, unspecified; F32.9 Major depressive disorder, single episode, unspecified; Z79.82 Long term (current) use of aspirin; Z79.899 Other long term (current) drug therapy; Z88.8 Allergy status to other drugs, medicaments and biological substances; Z91.018 Allergy to other foods
CPT/HCPCS: 36415; 71045; 71045-26; 80053; 83735; 83880; 84443; 84484; 85025; 93005; 99285; 99285-25